=== PATIENT | male | born 1950 | race Caucasian/White ===

== ENCOUNTER 2017-05-22 08:59 | Emergency (ER) | payer SELFPAY ==
[~2017-05-22] VITALS: Ht 177.8 cm; Wt 70.3 kg
[2017-05-22] MEDS ORDERED: Morphine Sulfate 4mg/ml Inj IVP ONE (09:45)
[2017-05-22 10:06] LABS: APPEARANCE,URINE CLEAR; KETONES,URINE NEGATIVE (NEGATIVE); LEUKOCYTE ESTERASE ,URINE 1+ (NEGATIVE); NITRITE,URINE NEGATIVE (NEGATIVE); PH,URINE 5 (4.5-8.0); PROTEIN,URINE NEGATIVE (NEGATIVE); UROBILINOGEN,URINE NORMAL MG/DL (0.0-1.0)
[2017-05-22 10:10] LABS: BASOPHILS % (AUTO) 1.4 % (0.0-2.0); EOSINOPHILS % (AUTO) 0.7 % (0.0-3.0); LYMPHOCYTES % (AUTO) 20.5 % (20.0-45.0); MEAN CORPUSCULAR HEMOGLOBIN 31.4 PG (27.0-31.0); MEAN CORPUSCULAR HGB CONC 32.9 G/DL (32.0-36.0); MEAN CORPUSCULAR VOLUME 95 FL (80-99); MEAN PLATELET VOLUME 6.3 FL (6.5-10.1); MONOCYTES % (AUTO) 10.7 % (1.0-10.0); NEUTROPHILS % (AUTO) 66.7 % (45.0-75.0); PLATELET COUNT 243 K/UL (150-450); RED BLOOD COUNT 5.19 M/UL (4.70-6.10); RED CELL DISTRIBUTION WIDTH 11.3 % (11.6-14.8); WHITE BLOOD COUNT 5.8 K/UL (4.8-10.8)
[2017-05-22 10:22] VITALS: BP 149/90
[2017-05-22 10:22] LABS: BACTERIA,URINE FEW /HPF; MUCUS,URINE FEW /LPF (NONE/OCC); RBC,URINE 0-2 /HPF (0 - 0); SQUAMOUS EPITHELIAL CELL,UR OCCASIONAL /LPF (NONE/OCC); WBC,URINE 0-2 /HPF (0 - 0)
[2017-05-22 10:31] LABS: ALANINE AMINOTRANSFERASE 28 U/L (3-41); ALBUMIN/GLOBULIN RATIO 1.9 (1.0-2.7); ANION GAP 13 (5-15); ASPARTATE AMINO TRANSFERASE 23 U/L (5-40); CALCIUM 9.4 mg/dL (8.6-10.2); CARBON DIOXIDE 24 mEQ/L (20-30); CHLORIDE 101 mEQ/L (98-107); CREATININE 1.1 mg/dL (0.7-1.2); GLOMERULAR FILTRATION RATE > 60 mL/min (>60); HEMOLYSIS 14; LIPASE 42 U/L (< 60); POTASSIUM 3.8 mEQ/L (3.4-4.9); SODIUM 138 mEQ/L (135-145); TOTAL PROTEIN 6.8 g/dL (6.6-8.7)
[2017-05-22] MEDS ORDERED: Midazolam 2mg/2ml Inj IVP ONE (10:45)
[2017-05-22 11:45] VITALS: BP 138/101
[2017-05-22] MEDS ORDERED: Morphine Sulfate 2mg/ml Inj IVP ONE (13:45)
[2017-05-22 15:14] VITALS: BP 149/89
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
[2017-05-22] MEDS ORDERED: IBUPROFEN600 MG ORAL (15:35)
[2017-05-22] MEDS ORDERED: LEVAQUIN500 MG ORAL (15:35)
[2017-05-22] MEDS ORDERED: TRAMADOL HCL50 MG ORAL (15:35)
[2017-05-22 15:40] VITALS: BP 149/89
--- NOTE | 2017-05-23 11:41 | Diagnostic Imaging Report ---
Indication: Shortness of breath Technique: One view of the chest Comparison: none Findings: Lungs and pleural spaces are clear. Heart size is normal. Impression: No acute process This agrees with the preliminary interpretation provided overnight by [facility] service.
--- NOTE | 2017-05-23 12:16 | Diagnostic Imaging Report ---
Indications: PAIN Technique: Grayscale and duplex images of the scrotum Comparison: Findings:The right testicle measures 3.6cm in length. It demonstrates normal echogenicity. Normal Doppler flow. Epididymis is enlarged and hypervascular. It also demonstrates multiple tiny calcifications. There is a small right hydrocele. The left testicle measures 3.3 cm in length. It demonstrates normal echogenicity and normal Doppler flow. Epididymis demonstrates 2 small cysts. Impression: Enlarged hypervascular right epididymis, consistent with epididymitis Small right hydrocele 2 small left epididymal cysts versus spermatoceles
== END 2017-05-22 15:48 | disposition home or self-care (01) ==
LOC: EMR 09:50
DX: K40.90 Unilateral inguinal hernia, without obstruction or gangrene, not specified as recurrent (principal); N45.1 Epididymitis; I10 Essential (primary) hypertension; F17.200 Nicotine dependence, unspecified, uncomplicated
CPT/HCPCS: 36415; 71010; 76870; 80053; 81003; 83690; 85025; 85610; 85730; 93005; 96374; 96375; 99284; J1956; J2250; J2270; J2405